=== PATIENT | female | born 1960 | race African-American/Black ===

== ENCOUNTER 2020-03-23 09:10 | Outpatient (CLI) | payer MEDICARE, OTHER ==
[2020-03-23] MEDS ORDERED: LACT-89 PO (13:09)
[2020-03-23] MEDS ORDERED: ERGO500014 PO (13:09)
[2020-03-23] MEDS ORDERED: AMIN887L PO (13:09)
[2020-03-23] MEDS ORDERED: CALC500T52 PO (13:09)
== END 2020-03-23 23:59 | disposition home or self-care (01) ==
LOC: MSC 09:10
PROVIDERS: ATTEND Internal Medicine
DX: R10.9 Unspecified abdominal pain (principal); Z87.19 Personal history of other diseases of the digestive system; R29.90 Unspecified symptoms and signs involving the nervous system; G72.9 Myopathy, unspecified; R53.81 Other malaise; I69.998 Other sequelae following unspecified cerebrovascular disease

== ENCOUNTER 2020-03-23 10:00 | Emergency (ER) | payer MEDICARE, OTHER ==
[~2020-03-23] VITALS: Ht 160 cm; Wt 55.8 kg
--- NOTE | 2020-03-23 10:15 | NUR ---
PT BROUGHT IN FROM [facility] UNDER DR. CAPPS. PT WAS REFRRED HERE FOR FURTHER EVAL OF ABD PAIN 02/24. PT ALSO STATES THAT SHE HAS PAIN ALL OVER BUT THAT HER MAIN CONCERN IS ABD PAIN AND PAIN AND BURNING UPON URINATION.. VS CHECKED. AWAITING MD CHAVARRIA.
--- NOTE | 2020-03-23 10:45 | NUR ---
IV ACCESS STARTED ON L HAND G22. INTACT AND PATENT AND FLUSHING WELL.
--- NOTE | 2020-03-23 10:48 | NUR ---
COVID SWAB DONE SENT TO LAB
[2020-03-23 11:11] LABS: BILIRUBIN,URINE NEGATIVE (NEGATIVE); BLOOD, URINE NEGATIVE Ery/uL (NEGATIVE); COLOR,URINE AMBER (YELLOW); LEUKOCYTE ESTERASE ,URINE TRACE (NEGATIVE); NITRITE, URINE POSITIVE (NEGATIVE); PROTEIN,URINE 100 mg/dl (NEGATIVE); UGLUCOSE 100 MG/DL mg/dL (NEGATIVE); UROBILINOGEN,URINE >=8.0 EU/dL (0.2)
--- NOTE | 2020-03-23 11:27 | NUR ---
COVID RESULT: NEGATIVE
--- NOTE | 2020-03-23 11:27 | NUR ---
LAB CALLED. PT NEGATIVE FOR COVID
[2020-03-23 11:29] LABS: BASOPHILS # (AUTO) 0.1 /CMM (0.0-0.2); BASOPHILS % (AUTO) 1.4 % (0.0-2.0); EOSINOPHILS % (AUTO) 2.9 % (0.0-6.0); HEMATOCRIT 39 % (33-45); HEMOGLOBIN 13.1 g/dL (11.5-14.8); LYMPHOCYTES # (AUTO) 2.1 /CMM (0.8-4.8); LYMPHOCYTES % (AUTO) 44.8 % (20.0-44.0); MEAN CORPUSCULAR HGB CONC 33 g/dl (31.0-36.0); MEAN CORPUSCULAR VOLUME 95 fL (82-100); MONOCYTES # (AUTO) 0.4 /CMM (0.1-1.30); NEUTROPHILS % (AUTO) 42.9 % (43.0-81.0); PLATELET COUNT (AUTO) 273 /CMM (150-450); RED BLOOD CELL COUNT(AUTO) 4.18 MIL/uL (4.0-5.2); WHITE BLOOD COUNT (AUTO) 4.7 K/uL (4.3-11.0)
[2020-03-23 11:49] LABS: ALANINE AMINOTRANSFERASE 21 U/L (12-78); ALBUMIN 3.5 g/dL (3.4-5.0); ALKALINE PHOSPHATASE 75 U/L (46-116); ASPARTATE AMINOTRANSFERASE 15 U/L (15-37); BILIRUBIN,DIRECT 0.2 mg/dL (0.0-0.2); BILIRUBIN,TOTAL 1.1 mg/dL (0.2-1.0); CALCIUM, SERUM 8.7 mg/dL (8.5-10.1); CARBON DIOXIDE 27 mmol/L (21-32); CHLORIDE 105 mmol/L (98-107); CREATININE 0.6 mg/dL (0.6-1.3); GLUCOSE 84 mg/dL (74-106); POTASSIUM 3.6 mmol/L (3.5-5.1); SODIUM SERUM 140 mmol/L (136-145); TOTAL PROTEIN, SERUM 7.7 g/dL (6.4-8.2); UREA NITROGEN, BLOOD 13 mg/dL (7-18)
[2020-03-23 12:05] LABS: BACTERIA,URINE Few /HPF (None Seen); RBC,URINE NONE SEEN /HPF (0-2); SQUAMOUS EPITHELIAL CELL,UR Few /HPF (None Seen)
[2020-03-23] MEDS ORDERED: CEFTRIAXONE 1GM BAG (ER ONLY) 50 ML IV ONE (12:24)
[2020-03-23] MEDS ORDERED: CEFTRIAXONE 1GM BAG (ER ONLY) 1 GM/50 ML PIGGYBACK IV ONE (12:30)
--- NOTE | 2020-03-23 12:58 | NUR ---
DR Diane MOORE FOR DR GILMAN
--- NOTE | 2020-03-23 13:01 | NUR ---
CALLED NURSING SUP FOR M/S BED.
[2020-03-23] MEDS ORDERED: LACT-89 PO (13:09)
[2020-03-23] MEDS ORDERED: CALC500T52 PO (13:09)
[2020-03-23] MEDS ORDERED: ERGO500014 PO (13:09)
[2020-03-23] MEDS ORDERED: AMIN887L PO (13:09)
--- NOTE | 2020-03-23 13:15 | NUR ---
SECOND CALL DR. SYLVIA EVANS, NO ANSWER.
--- NOTE | 2020-03-23 13:30 | NUR ---
REPORT GIVEN TO CHRISTELLE SHAHID AT [facility]. PT WILL BE GOING TO RM [address].
--- NOTE | 2020-03-23 13:36 | NUR ---
THIRD CALL TO DR. SYLVIA EVANS, NO ANSWER. LEFT MESSAGE.
--- NOTE | 2020-03-23 13:54 | NUR ---
PAGED DR. CORREA.
--- NOTE | 2020-03-23 14:55 | NUR ---
DR CORREA CALLED, WANTS PATIENT ADMITTED TO [facility]
--- NOTE | 2020-03-23 16:11 | NUR ---
PER DR. WALL, SHE SPOKE WITH PTS PCP DR. EVANS. PT WILL BE DCD HOME AND CONTINUE WITH CURRENT TX GIVEN BY DR. EVANS. PT AWARE.
--- NOTE | 2020-03-23 16:14 | NUR ---
CALLED [facility] PHONE NUMBER [phone] ([employer]) FOR ETA, SPOKE WITH [facility]. AWAITING CALL BACK FOR ETA
--- NOTE | 2020-03-23 17:16 | NUR ---
CALLED [facility] FOR TRANSPORT TO [facility]. ETA [id number]. TRIP NUMBER [id number].
--- NOTE | 2020-03-23 20:09 | NUR ---
PATIENT PICKED UP BY [facility] [place]. REPORT GIVEN TO TRANSFER TEAM AND FOR TRANSPORTATION RESPONSIBILTIES.
--- NOTE | 2020-03-23 20:11 | NUR ---
PATIENT STATES THAT SHE IS BEING RECEIVED BY DICKSON ROYAL, AT [facility].
[2020-03-23 20:13] VITALS: BP 113/76
--- NOTE | 2020-03-23 20:20 | NUR ---
CALLED [facility] FOR CANCELLATION OF TRIP #[id number]
== END 2020-03-23 20:14 | disposition home or self-care (01) ==
LOC: ER 10:09 → MEDSG1 13:21 → UNDOADMIN 13:21 → ER 20:14
DX: N39.0 Urinary tract infection, site not specified (principal); R10.9 Unspecified abdominal pain; Z20.828 Contact with and (suspected) exposure to other viral communicable diseases; Z86.73 Personal history of transient ischemic attack (TIA), and cerebral infarction without residual deficits; I10 Essential (primary) hypertension; H54.7 Unspecified visual loss; Z87.440 Personal history of urinary (tract) infections
CPT/HCPCS: 36415; 71045; 80048; 80076; 81001; 83605; 84145; 84484; 85025; 85730; 87040 ×2; 87077; 87081; 87086; 87186; 87426; 93005; 96365; 99285; J0696; 81000-TC; C9803